=== PATIENT | male | born 1975 | race Two or more races ===

== ENCOUNTER 2016-07-23 18:50 | Emergency (ER) | payer OTHER ==
[~2016-07-23] VITALS: Ht 172.7 cm; Wt 69.9 kg
[2016-07-23 18:58] VITALS: BP 100/57
== END 2016-07-23 19:21 | disposition home or self-care (01) ==
LOC: ER 18:53
DX: S60.021A Contusion of right index finger without damage to nail, initial encounter (principal); K42.0 Umbilical hernia with obstruction, without gangrene; X58.XXXA Exposure to other specified factors, initial encounter; Y92.89 Other specified places as the place of occurrence of the external cause; Y93.89 Activity, other specified; Y99.8 Other external cause status
CPT/HCPCS: A4606; Z7610